=== PATIENT | male | born 1995 | race African-American/Black ===

== ENCOUNTER 2021-11-30 23:24 | Emergency (ER) | payer OTHER, SELFPAY ==
[2021-12-01] MEDS ORDERED: Ketorolac Tromethamine 30 MG/ML VIAL ONE (00:02)
== END 2021-12-01 01:09 | disposition home or self-care (01) ==
LOC: CSHERS 23:24
DX: S33.5XXA Sprain of ligaments of lumbar spine, initial encounter (principal); S23.3XXA Sprain of ligaments of thoracic spine, initial encounter; V43.62XA Car passenger injured in collision with other type car in traffic accident, initial encounter
CPT/HCPCS: 72128; 72131; 96372; J1885